=== PATIENT | female | born 2000 | race Caucasian/White ===

== ENCOUNTER → 2021-06-01 | Outpatient (REF) | payer OTHER | LOC: M LAB REF 17:02 | PROVIDERS: ATTEND Physician Assistant | DX: J06.9 Acute upper respiratory infection, unspecified (principal) ==

== ENCOUNTER 2021-08-30 10:34 | Emergency (ER) | payer OTHER ==
[~2021-08-30] VITALS: Ht 172.7 cm; Wt 59.2 kg
[2021-08-30 10:34] VITALS: BP 128/77
== END 2021-08-30 16:44 | disposition left against medical advice (07) ==
LOC: M ED 10:34
DX: Z53.21 Procedure and treatment not carried out due to patient leaving prior to being seen by health care provider (principal)

== ENCOUNTER → 2022-04-03 | Outpatient (REF) | payer OTHER ==
[2022-04-03 21:35] LABS: GC DNA AMPLIFICATION NEGATIVE (NEGATIVE)
== END ==
LOC: M WUC 19:16
PROVIDERS: ATTEND Physician Assistant
DX: R30.0 Dysuria (principal)

== ENCOUNTER 2023-01-09 22:35 | Emergency (ER) | payer OTHER ==
[~2023-01-09] VITALS: Ht 172.7 cm; Wt 62.1 kg
[2023-01-10 00:50] LABS: BASO % 0.4 % (0.0-1.0); EOS # 0.2 10^3/uL (0.0-0.5); EOS % 1.5 % (0.0-3.0); HEMATOCRIT 38.5 % (36.0-47.0); HEMOGLOBIN 13.4 g/dl (12.0-15.5); LYMPH # 2.3 10^3/uL (1.5-5.0); LYMPH % 22.2 % (24.0-44.0); MEAN CORPUSCULAR HEMOGLOBIN 30.8 pg (27.0-33.0); MEAN CORPUSCULAR HGB CONC 34.8 g/dl (32.0-36.5); MEAN CORPUSCULAR VOLUME 88.5 fl (80.0-96.0); MONO # 0.8 10^3/uL (0.0-0.8); MONO % 7.5 % (2.0-8.0); NEUTROPHILS # 6.9 10^3/uL (1.5-8.5); NEUTROPHILS % 67.8 % (36.0-66.0); PLATELET COUNT, AUTOMATED 184 10^3/uL (150-450); RED BLOOD COUNT 4.35 10^6/uL (4.00-5.40); WHITE BLOOD COUNT 10.2 10^3/uL (4.0-10.0)
[2023-01-10 01:09] LABS: BLOOD UREA NITROGEN 8 MG/DL (9-23); CALCIUM LEVEL 8.7 MG/DL (8.5-10.1); CARBON DIOXIDE LEVEL 27 MMOL/L (20-31); CHLORIDE LEVEL 107 MMOL/L (98-107); CREATININE FOR GFR 0.61 MG/DL (0.55-1.30); GLOMERULAR FILTRATION RATE > 60.0 (>60); GLUCOSE, FASTING 96 MG/DL (60-100); POTASSIUM SERUM 3.5 MMOL/L (3.5-5.1); SODIUM LEVEL 141 MMOL/L (136-145)
[2023-01-10 01:23] LABS: HCG, SERUM QUANTITATIVE 12428.5 MIU/ML (<4.2)
[2023-01-10] MEDS ORDERED: NS 1,000 ML IV ONE ×2 (02:00→02:20)
[2023-01-10] MEDS ORDERED: KETOROLAC 30 MG/ML 1ML VIAL IV ONE (02:20)
[2023-01-10 03:50] VITALS: TEMP 97.8; O2SAT 98
[2023-01-10] MEDS ORDERED: KETO10TAB PO (03:54)
[2023-01-10 03:59] VITALS: BP 103/62
== END 2023-01-10 04:05 | disposition home or self-care (01) ==
LOC: M ED 22:35
DX: O02.1 Missed abortion (principal); Z79.899 Other long term (current) drug therapy
CPT/HCPCS: 76801; 80048; 81000; 81015; 84702; 85025; 86850; 86900; 86901; 93976; 96361; 96374; 99284; J1885

== ENCOUNTER → 2023-03-21 | Outpatient (REF) | payer OTHER ==
[~2023-03-21] MED LIST: KETO10TAB PO
== END ==
LOC: M LAB REF 17:17
PROVIDERS: ATTEND Family Medicine
DX: N76.0 Acute vaginitis (principal)

== ENCOUNTER → 2023-04-10 | Outpatient (REF) | payer OTHER ==
[2023-04-10 20:53] LABS: GC DNA AMPLIFICATION NEGATIVE (NEGATIVE)
== END ==
LOC: M WUC 18:55
PROVIDERS: ATTEND Physician Assistant
DX: R30.0 Dysuria (principal)